=== PATIENT | female | born 1960 | race Caucasian/White ===

== ENCOUNTER 2020-11-18 21:26 | Inpatient (IN) | payer MEDICAID ==
[~2020-11-18] VITALS: Ht 149.9 cm; Wt 109.1 kg
[~2020-11-18 21:26] MED LIST: CLIN-97 PO
--- NOTE | 2020-11-19 00:18 | NUR ---
pt to room, assumed care. ERP at bedside
--- NOTE | 2020-11-19 00:19 | NUR ---
pt tremulous in bed, denies pain.
[2020-11-19 01:20] LABS: BASOPHILS % (AUTO) 0.4 % (0-1); EOSINOPHILS # (AUTO) 0.3 X10'3 (0-0.9); EOSINOPHILS % (AUTO) 2.7 % (0-6); HEMATOCRIT 37.9 % (35.0-45.0); HEMOGLOBIN 12.3 g/dl (12.0-16.0); LYMPHOCYTES # (AUTO) 3.9 X10'3 (1.1-4.8); MEAN CORPUSCULAR HEMOGLOBIN 26.7 PG (27.0-31.0); MEAN CORPUSCULAR HGB CONC 32.5 g/dL (33.0-36.5); MEAN CORPUSCULAR VOLUME 82.2 FL (78-98); MEAN PLATELET VOLUME 8.4 FL (7.4-10.4); MONOCYTES # (AUTO) 0.8 X10'3 (0-0.9); MONOCYTES % (AUTO) 6.6 % (2-12); NEUTROPHILS # (AUTO) 6.5 X10'3 (1.8-7.7); NEUTROPHILS % (AUTO) 56.3 % (42-75); PLATELET COUNT 341 X10'3 (140-440); RED BLOOD COUNT 4.61 X10'6 (4.20-5.60); RED CELL DISTRIBUTION WIDTH 15.2 % (11.5-14.5); WHITE BLOOD COUNT 11.5 X10'3 (4.5-11.0)
[2020-11-19 01:32] LABS: ALANINE AMINOTRANSFERASE 29 U/L (12-78); ALBUMIN 3.4 G/DL (3.4-5.0); ALBUMIN/GLOBULIN RATIO 0.8 (1.1-1.5); ALKALINE PHOSPHATASE 87 IU/L (46-116); ANION GAP 11 (8-16); ASPARTATE AMINO TRANSFERASE 28 U/L (10-37); BILIRUBIN,TOTAL 0.5 MG/DL (0.1-1.0); BLOOD UREA NITROGEN 10 MG/DL (7-18); BUN/CREATININE RATIO 9.3 (6.6-38.0); CALCIUM 9.9 MG/DL (8.5-10.1); CHLORIDE 102 MMOL/L (99-107); CREATININE 1.08 MG/DL (0.40-0.90); ETHANOL < 0.010 GM/DL (0.0-0.010); GLUCOSE 115 MG/DL (70-104); MAGNESIUM 1.7 MG/DL (1.5-2.4); SODIUM 142 MMOL/L (135-145); TOTAL CARBON DIOXIDE 28.8 MMOL/L (24-32); TOTAL PROTEIN 7.5 G/DL (6.4-8.2); eGFR 51 ML/MIN
[2020-11-19] MEDS ORDERED: magnesium oxide 400mg tablet PO ONE (02:00)
[2020-11-19] MEDS ORDERED: potassium Cl 20 mEq SR tablet PO ONE (02:00)
[2020-11-19] MEDS ORDERED: LORazepam 1 MG tablet PO ONE (02:00)
[2020-11-19] MEDS ORDERED: primidone 250mg tablet PO ONE (02:05)
[2020-11-19] MEDS ORDERED: BUPR-344 PO (02:15)
[2020-11-19] MEDS ORDERED: FURO-150 PO (02:15)
[2020-11-19] MEDS ORDERED: OXYB5POW (02:15)
[2020-11-19] MEDS ORDERED: LISI20TA28 PO (02:15)
[2020-11-19] MEDS ORDERED: PROP20TA6 PO (02:17)
[2020-11-19] MEDS ORDERED: CHLO25TA10 PO (02:17)
--- NOTE | 2020-11-19 02:28 | NUR ---
pt refused IV.
[2020-11-19] MEDS ORDERED: acetaminophen 325mg tablet PO PRN ×2 (03:00)
[2020-11-19] MEDS ORDERED: magnesium 4gm in 100ml NS 100 ML IV PRN (03:00)
[2020-11-19] MEDS ORDERED: potassium Cl 20 mEq SR tablet PO PRN ×2 (03:00)
[2020-11-19] MEDS ORDERED: magnesium Cl slow-release 64mg tablet PO PRN (03:00)
[2020-11-19] MEDS ORDERED: magnesium 2GM in 50ml NS 50 ML IV PRN (03:00)
[2020-11-19] MEDS ORDERED: ondansetron/PF 4mg/2ml inj IV PRN (03:00)
[2020-11-19] MEDS ORDERED: potassium Cl 40MEQ/1/2NS 520ml 520 ML IV PRN ×2 (03:00)
--- NOTE | 2020-11-19 03:23 | NUR ---
[facility] RO[facility] ([facility])- [phone] or [phone]
[2020-11-19] MEDS ORDERED: LORazepam 1 MG tablet PO PRN (03:25)
[2020-11-19] MEDS ORDERED: LORazepam 2 mg/ml vial IV PRN (03:25)
[2020-11-19 04:53] LABS: CLARITY,URINE CLOUDY (Clear); COLOR,URINE YELLOW (Yellow); GLUCOSE, URINE NEGATIVE (Neg); KETONES,URINE NEGATIVE (Neg); LEUKOCYTE ESTERASE ,URINE LARGE (Neg); NITRITES, URINE NEGATIVE (Neg); OCCULT BLOOD,URINE SMALL (Neg); PH,URINE 8.5 (4.8-8.0); PROTEIN,URINE TRACE mg/dl (Neg); UROBILINOGEN,URINE 0.2 E.U/dL (0.2-1.0)
[2020-11-19 05:06] LABS: URINE AMPHETAMINE SCREEN NEGATIVE (Neg); URINE BARBITUATE SCREEN NEGATIVE (Neg); URINE BENZODIAZEPINES SCREEN NEGATIVE (Neg); URINE CANNABINOID SCREEN NEGATIVE (Neg); URINE COCAINE SCREEN NEGATIVE (Neg); URINE METHADONE SCREEN NEGATIVE (Neg); URINE OPIATE SCREEN NEGATIVE (Neg); URINE PHENCYCLIDINE SCREEN NEGATIVE (Neg)
[2020-11-19 05:08] LABS: UA COLLECTION TYPE NON-SPECIFIED
[2020-11-19 05:10] LABS: BACTERIA,URINE FEW /HPF (Neg); RBC,URINE 0-2 /HPF (0-2); SQUAMOUS EPITHELIAL CELL,UR FEW /LPF (FEW); TRIPLE PHOSPHATE CRYST 3+ /HPF (NEGATIVE); WBC,URINE 0-4 /HPF (0-4)
[2020-11-19 05:12] LABS: AMORPHOUS PHOSPHATES 2+
--- NOTE | 2020-11-19 06:23 | NUR ---
PT SLEEPING ON LEFT SIDE NO DISTRESS NOTED. RESPIRATIONS EQUAL. WAS TOLD PT REFUSED TO HAVE IV PLACED.
[2020-11-19] MEDS ORDERED: primidone 250mg tablet PO SCH (08:00)
[2020-11-19] MEDS: K and/or MAG REPLACEMENT MC SCH ×2 (08:00→20:00)
[2020-11-19] MEDS: heparin, porcine 5000 units/ml vial SQ SCH ×2 (09:19→20:03)
[2020-11-19] MEDS: normal saline 1000ml 1,000 ML IV SCH ×3 (09:19→21:02)
[2020-11-19 10:00] VITALS: BP 142/77
[2020-11-19] MEDS ORDERED: OXYB5TAB16 PO (11:57)
[2020-11-19] MEDS ORDERED: LISI10TA27 PO (11:57)
[2020-11-19] MEDS: LORazepam 1 MG tablet PO SCH (13:14)
[2020-11-19] MEDS: primidone 50mg tablet PO SCH ×2 (13:14→20:03)
--- NOTE | 2020-11-19 17:50 | NUR ---
Completed MRI screening form and faxed down to MRI. 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 Pt off floor for MRI.
[2020-11-19 18:00] VITALS: BP 126/67
--- NOTE | 2020-11-19 18:00 | NUR ---
Problems reprioritized. Patient report given, questions answered & plan of care reviewed with Vicky MANNING.
--- NOTE | 2020-11-19 18:19 | NUR ---
Pt returned to floor from MRI.
[2020-11-19] MEDS: oxybutynin 5mg tablet PO SCH (20:03)
[2020-11-19] MEDS: propranolol 10mg tablet PO SCH (20:03)
[2020-11-19 22:00] VITALS: BP 126/57
--- NOTE | 2020-11-20 06:00 | NUR ---
Patient in room ORTHO 4010. I have received report from DAPHNEY MANNING and had the opportunity to ask questions and assume patient care.
--- NOTE | 2020-11-20 06:16 | NUR ---
Problems reprioritized. Patient report given, questions answered & plan of care reviewed with Garima MANNING. Addendum: 11/20/20 at 0617 by Vicky Faust RN Amended: Links added.
[2020-11-20 07:38] LABS: BASOPHILS % (AUTO) 0.3 % (0-1); EOSINOPHILS # (AUTO) 0.6 X10'3 (0-0.9); EOSINOPHILS % (AUTO) 8.6 % (0-6); HEMATOCRIT 35.3 % (35.0-45.0); HEMOGLOBIN 11.5 g/dl (12.0-16.0); LYMPHOCYTES # (AUTO) 2.7 X10'3 (1.1-4.8); LYMPHOCYTES % (AUTO) 37.8 % (21-51); MEAN CORPUSCULAR HEMOGLOBIN 26.9 PG (27.0-31.0); MEAN CORPUSCULAR HGB CONC 32.5 g/dL (33.0-36.5); MEAN CORPUSCULAR VOLUME 82.8 FL (78-98); MEAN PLATELET VOLUME 8.6 FL (7.4-10.4); MONOCYTES # (AUTO) 0.5 X10'3 (0-0.9); MONOCYTES % (AUTO) 7.4 % (2-12); NEUTROPHILS # (AUTO) 3.3 X10'3 (1.8-7.7); NEUTROPHILS % (AUTO) 45.9 % (42-75); PLATELET COUNT 282 X10'3 (140-440); RED BLOOD COUNT 4.26 X10'6 (4.20-5.60); RED CELL DISTRIBUTION WIDTH 15.5 % (11.5-14.5); WHITE BLOOD COUNT 7.3 X10'3 (4.5-11.0)
[2020-11-20 07:49] LABS: ALANINE AMINOTRANSFERASE 28 U/L (12-78); ALBUMIN 2.7 G/DL (3.4-5.0); ALBUMIN/GLOBULIN RATIO 0.8 (1.1-1.5); ALKALINE PHOSPHATASE 67 IU/L (46-116); ANION GAP 6 (8-16); ASPARTATE AMINO TRANSFERASE 21 U/L (10-37); BILIRUBIN,TOTAL 0.3 MG/DL (0.1-1.0); BLOOD UREA NITROGEN 12 MG/DL (7-18); CALCIUM 8.1 MG/DL (8.5-10.1); CHLORIDE 105 MMOL/L (99-107); CREATININE 0.75 MG/DL (0.40-0.90); GLUCOSE 89 MG/DL (70-104); MAGNESIUM 1.8 MG/DL (1.5-2.4); POTASSIUM 3.5 MMOL/L (3.5-5.1); SODIUM 140 MMOL/L (135-145); TOTAL CARBON DIOXIDE 29.5 MMOL/L (24-32); TOTAL PROTEIN 6.2 G/DL (6.4-8.2); eGFR 78 ML/MIN
[2020-11-20 08:00] VITALS: BP 121/65
[2020-11-20] MEDS: K and/or MAG REPLACEMENT MC SCH (08:00)
[2020-11-20] MEDS ORDERED: furosemide 20MG tablet PO SCH (08:00)
[2020-11-20] MEDS ORDERED: chlorthalidone 25mg tablet PO SCH (08:00)
[2020-11-20] MEDS ORDERED: buPROPion SR 150mg tablet PO SCH (08:00)
[2020-11-20] MEDS ORDERED: lisinopril 10 MG tablet PO SCH (08:00)
[2020-11-20] MEDS: heparin, porcine 5000 units/ml vial SQ SCH (08:39)
[2020-11-20] MEDS: propranolol 10mg tablet PO SCH (08:39)
[2020-11-20] MEDS: LORazepam 1 MG tablet PO SCH (08:39)
[2020-11-20] MEDS: oxybutynin 5mg tablet PO SCH (08:40)
[2020-11-20] MEDS: primidone 50mg tablet PO SCH (08:40)
[2020-11-20] MEDS: normal saline 1000ml 1,000 ML IV SCH (08:41)
[2020-11-20 10:07] VITALS: BP 107/51
[2020-11-20] MEDS ORDERED: LORA-269 PO (11:12)
--- NOTE | 2020-11-20 11:43 | NUR ---
pt received discharge instruction and verbalized understanding of dc instructions. iv was dc intact, monitor was also removed. pt was wheeled to private vehicle in zero distress.
== END 2020-11-20 11:40 | disposition home health service (06) | DRG 469 ==
LOC: ER 21:27 → ED HOLD 11-19 02:58 → OBSVTOIN 11-19 02:58 → ORTHO 4S 11-19 06:55
PROVIDERS: ADMIT Internal Medicine; ATTEND Internal Medicine
PROC: 4A00X4Z Measurement of Central Nervous Electrical Activity, External Approach (ICD-10-PCS; principal; 2020-11-19)
DX: N17.9 Acute kidney failure, unspecified (principal); E66.01 Morbid (severe) obesity due to excess calories; G25.0 Essential tremor; N18.30 Chronic kidney disease, stage 3 unspecified; E86.0 Dehydration; E87.6 Hypokalemia; I12.9 Hypertensive chronic kidney disease with stage 1 through stage 4 chronic kidney disease, or unspecified chronic kidney disease; J45.909 Unspecified asthma, uncomplicated; R63.3 Feeding difficulties; Z79.899 Other long term (current) drug therapy; Z82.0 Family history of epilepsy and other diseases of the nervous system; Z90.710 Acquired absence of both cervix and uterus; Z68.42 Body mass index [BMI] 45.0-49.9, adult; Z88.1 Allergy status to other antibiotic agents; Z88.5 Allergy status to narcotic agent
CPT/HCPCS: 36415; 70450; 70551; 80053; 80305; 80320; 81001; 82140; 83735; 85025; 87081; 87088; 95816; 97116; 97162; 97530; 99285; G0378; J1644; J7030

== ENCOUNTER 2021-03-24 09:40 | Emergency (ER) | payer MEDICAID ==
[~2021-03-24] VITALS: Ht 149.9 cm; Wt 99.0 kg
[~2021-03-24 09:40] MED LIST changes: +BUPR-344 PO; +CHLO25TA10 PO; -CLIN-97 PO; +FURO-150 PO; +LISI10TA27 PO; +LORA-269 PO; +OXYB5TAB16 PO; +PROP20TA6 PO
[2021-03-24 09:47] VITALS: BP 201/108
[2021-03-24 12:56] LABS: BASOPHILS # (AUTO) 0.1 X10'3 (0-0.2); BASOPHILS % (AUTO) 1.2 % (0-1); EOSINOPHILS # (AUTO) 0.7 X10'3 (0-0.9); EOSINOPHILS % (AUTO) 7.5 % (0-6); HEMATOCRIT 35.7 % (35.0-45.0); HEMOGLOBIN 11.5 g/dl (12.0-16.0); LYMPHOCYTES # (AUTO) 3.2 X10'3 (1.1-4.8); LYMPHOCYTES % (AUTO) 33.5 % (21-51); MEAN CORPUSCULAR HEMOGLOBIN 26.9 PG (27.0-31.0); MEAN CORPUSCULAR HGB CONC 32.1 g/dL (33.0-36.5); MEAN CORPUSCULAR VOLUME 83.6 FL (78-98); MEAN PLATELET VOLUME 8.3 FL (7.4-10.4); MONOCYTES # (AUTO) 0.6 X10'3 (0-0.9); MONOCYTES % (AUTO) 6.5 % (2-12); NEUTROPHILS # (AUTO) 4.8 X10'3 (1.8-7.7); NEUTROPHILS % (AUTO) 51.3 % (42-75); PLATELET COUNT 356 X10'3 (140-440); RED BLOOD COUNT 4.27 X10'6 (4.20-5.60); WHITE BLOOD COUNT 9.4 X10'3 (4.5-11.0)
[2021-03-24 13:09] LABS: ALANINE AMINOTRANSFERASE 26 U/L (12-78); ALBUMIN 3.1 G/DL (3.4-5.0); ALBUMIN/GLOBULIN RATIO 0.7 (1.1-1.5); ALKALINE PHOSPHATASE 82 IU/L (46-116); ANION GAP 7 (8-16); ASPARTATE AMINO TRANSFERASE 18 U/L (10-37); BILIRUBIN,TOTAL 0.2 MG/DL (0.1-1.0); BLOOD UREA NITROGEN 11 MG/DL (7-18); BUN/CREATININE RATIO 12.4 (6.6-38.0); CALCIUM 8.8 MG/DL (8.5-10.1); CHLORIDE 107 MMOL/L (99-107); CREATININE 0.89 MG/DL (0.40-0.90); GLUCOSE 86 MG/DL (70-104); POTASSIUM 3.8 MMOL/L (3.5-5.1); SODIUM 144 MMOL/L (135-145); TOTAL CARBON DIOXIDE 30.5 MMOL/L (24-32); TOTAL PROTEIN 7.3 G/DL (6.4-8.2); eGFR 64 ML/MIN
[2021-03-24 13:11] LABS: CREATINE KINASE 91 U/L (26-192)
== END 2021-03-24 13:55 | disposition home or self-care (01) ==
LOC: ER 09:40
DX: M79.18 Myalgia, other site (principal); I10 Essential (primary) hypertension; M79.602 Pain in left arm; M25.561 Pain in right knee; J45.909 Unspecified asthma, uncomplicated; K21.9 Gastro-esophageal reflux disease without esophagitis; Z86.69 Personal history of other diseases of the nervous system and sense organs; Z90.710 Acquired absence of both cervix and uterus; Z79.2 Long term (current) use of antibiotics; Z88.8 Allergy status to other drugs, medicaments and biological substances; Z79.899 Other long term (current) drug therapy
CPT/HCPCS: 36415; 80053; 82550; 85025; 99283

== ENCOUNTER 2021-10-31 22:31 | Inpatient (IN) | payer MEDICAID ==
[~2021-10-31] VITALS: Ht 149.9 cm; Wt 100.0 kg
--- NOTE | 2021-10-31 23:24 | NUR ---
DR DELGADO GAVE VO FOR 0.5 MG OF DILAUDID IV ONCE GIVEN SLOWLY. DR DELGADO VERY AWARE OF PT'S ALLERGY TO CODEINE. PT RECEIVED FENTANYL EN ROUTE TO DEPARTMENT AND DID NOT DEVELOP ANY REACTION. DR DELGADO GAVE ORDER TO CAREFULLY MONITOR PT. VERBAL ORDER REPEATED BACK FOR ACCURACY.
[2021-10-31] MEDS ORDERED: HYDROmorphone inj. 0.5 MG/0.5 ML DISP.SYRIN IV ONE ×2 (23:25)
[2021-10-31] MEDS ORDERED: normal saline 1000ml 1,000 ML IV ONE (23:30)
[2021-10-31 23:48] LABS: BASOPHILS % (AUTO) 0.3 % (0-1); EOSINOPHILS # (AUTO) 0.8 X10'3 (0-0.9); EOSINOPHILS % (AUTO) 5.5 % (0-6); HEMATOCRIT 35.3 % (35.0-45.0); HEMOGLOBIN 11.6 g/dl (12.0-16.0); LYMPHOCYTES # (AUTO) 2.7 X10'3 (1.1-4.8); LYMPHOCYTES % (AUTO) 18.2 % (21-51); MEAN CORPUSCULAR HEMOGLOBIN 27.3 PG (27.0-31.0); MEAN CORPUSCULAR HGB CONC 32.9 g/dL (33.0-36.5); MEAN CORPUSCULAR VOLUME 82.9 FL (78-98); MEAN PLATELET VOLUME 8.5 FL (7.4-10.4); MONOCYTES # (AUTO) 0.6 X10'3 (0-0.9); MONOCYTES % (AUTO) 4.4 % (2-12); NEUTROPHILS # (AUTO) 10.4 X10'3 (1.8-7.7); NEUTROPHILS % (AUTO) 71.6 % (42-75); PLATELET COUNT 288 X10'3 (140-440); RED BLOOD COUNT 4.25 X10'6 (4.20-5.60); RED CELL DISTRIBUTION WIDTH 14.5 % (11.5-14.5); WHITE BLOOD COUNT 14.5 X10'3 (4.5-11.0)
[2021-10-31] MEDS ORDERED: mag hydrox/Alum hydrox/simeth 30ml oral suspension PO PRN (23:50)
[2021-10-31] MEDS ORDERED: HYDROcodone/acetaminophen 5mg/325mg tablet PO PRN (23:50)
[2021-10-31] MEDS ORDERED: ipratropium/albuterol 3ml nebule NEB PRN (23:50)
[2021-10-31] MEDS ORDERED: magnesium hydroxide 30ml (MOM) UD suspension PO PRN (23:50)
[2021-10-31] MEDS ORDERED: morphine 2 MG/ML inj. syringe IV PRN ×2 (23:50)
[2021-10-31] MEDS ORDERED: acetaminophen 325mg tablet PO PRN ×2 (23:50)
[2021-10-31] MEDS: dextrose 5%-1/2 normal saline 1,000 ML IV SCH (23:50)
[2021-10-31] MEDS ORDERED: ondansetron/PF 4mg/2ml inj IV PRN (23:50)
[2021-10-31 23:58] LABS: APTT 27 SECONDS (22-32)
[2021-11-01 00:04] LABS: ALANINE AMINOTRANSFERASE 17 U/L (12-78); ALBUMIN 3.3 G/DL (3.4-5.0); ALBUMIN/GLOBULIN RATIO 0.8 (1.1-1.5); ALKALINE PHOSPHATASE 75 IU/L (46-116); ANION GAP 8 (8-16); ASPARTATE AMINO TRANSFERASE 11 U/L (10-37); BILIRUBIN,TOTAL 0.2 MG/DL (0.1-1.0); BLOOD UREA NITROGEN 17 MG/DL (7-18); BUN/CREATININE RATIO 15.2 (6.6-38.0); CALCIUM 8.2 MG/DL (8.5-10.1); CHLORIDE 105 MMOL/L (99-107); CREATININE 1.12 MG/DL (0.40-0.90); GLUCOSE 159 MG/DL (70-104); POTASSIUM 3.1 MMOL/L (3.5-5.1); SODIUM 141 MMOL/L (135-145); TOTAL CARBON DIOXIDE 27.6 MMOL/L (24-32); TOTAL PROTEIN 7.3 G/DL (6.4-8.2); eGFR 49 ML/MIN
[2021-11-01 00:06] LABS: MAGNESIUM 1.7 MG/DL (1.5-2.4)
--- NOTE | 2021-11-01 01:00 | NUR ---
PT IS UNABLE TO CARE FOR HERSELF D/T HER FRACTURE ON HER OWN DURING THE NIGHT. HER SON WORKS NIGHTSHIFT AND IS UNABLE TO HELP HER SETTLE BACK HOME.
[2021-11-01] MEDS ORDERED: CHOL500050 PO (01:17)
[2021-11-01] MEDS ORDERED: PRIM50TA27 PO ×2 (01:17→01:23)
[2021-11-01] MEDS ORDERED: PANT-47 PO (01:17)
--- NOTE | 2021-11-01 01:44 | NUR ---
PT'S SON, JUAN FRANCISCO, PHONE NUMBER IS [phone]
[2021-11-01 02:20] VITALS: BP 146/52
[2021-11-01] MEDS: dextrose 5%-1/2 normal saline 1,000 ML IV SCH (02:32)
--- NOTE | 2021-11-01 02:48 | NUR ---
MESSAGE: 4010a Poo;, [place] 61 humurus fx. her potassium is low 3.1. can she be on replacement protocol? thank you. #[id number] Birgit
[2021-11-01 06:00] VITALS: BP 119/47
[2021-11-01 06:33] LABS: BASOPHILS % (AUTO) 0.2 % (0-1); EOSINOPHILS % (AUTO) 0.2 % (0-6); HEMATOCRIT 36.2 % (35.0-45.0); HEMOGLOBIN 11.2 g/dl (12.0-16.0); LYMPHOCYTES # (AUTO) 1.1 X10'3 (1.1-4.8); LYMPHOCYTES % (AUTO) 8.5 % (21-51); MEAN CORPUSCULAR HEMOGLOBIN 26.7 PG (27.0-31.0); MEAN PLATELET VOLUME 8.8 FL (7.4-10.4); MONOCYTES # (AUTO) 0.6 X10'3 (0-0.9); MONOCYTES % (AUTO) 4.4 % (2-12); NEUTROPHILS # (AUTO) 11.2 X10'3 (1.8-7.7); NEUTROPHILS % (AUTO) 86.7 % (42-75); PLATELET COUNT 240 X10'3 (140-440); RED BLOOD COUNT 4.21 X10'6 (4.20-5.60); RED CELL DISTRIBUTION WIDTH 14.9 % (11.5-14.5)
--- NOTE | 2021-11-01 06:35 | NUR ---
Problems reprioritized. Patient report given, questions answered & plan of care reviewed with nader Shi.
[2021-11-01 06:49] LABS: ALBUMIN 3.1 G/DL (3.4-5.0); ANION GAP 14 (8-16); BLOOD UREA NITROGEN 15 MG/DL (7-18); BUN/CREATININE RATIO 17.6 (6.6-38.0); CHLORIDE 105 MMOL/L (99-107); CREATININE 0.85 MG/DL (0.40-0.90); GLUCOSE 160 MG/DL (70-104); POTASSIUM 3.5 MMOL/L (3.5-5.1); SODIUM 143 MMOL/L (135-145); TOTAL CARBON DIOXIDE 24.3 MMOL/L (24-32); eGFR 68 ML/MIN
--- NOTE | 2021-11-01 06:50 | NUR ---
Patient in room ORTHO 4010A. I have received report from KERRI DOTSON and had the opportunity to ask questions and assume patient care.
[2021-11-01] MEDS ORDERED: docusate sod 100mg capsule PO SCH (08:00)
[2021-11-01 10:00] VITALS: BP 133/46
[2021-11-01] MEDS ORDERED: HYDR-3964 PO ×2 (12:00)
[2021-11-01] MEDS ORDERED: TRAM50TA2 PO (12:51)
[2021-11-01] MEDS ORDERED: ONDA8TAB13 PO (12:51)
--- NOTE | 2021-11-01 16:15 | NUR ---
PATIENT STABLE AND APPROPRIATE FOR DISCHARGE, IV REMOVED, EDUCATION GIVEN, NEW MEDS E-SCRIPTED TO PREFERRED PHARMACY, ALL BELONGINGS SENT WITH PATIENT, PATIENT TAKEN TO LOBBY BY WHEELCHAIR TO AN AWAITING CAR WHERE WILL TAKE PATIENT HOME
--- NOTE | 2021-11-01 17:15 | NUR ---
CALLED TO HAVE ME CANCEL NORCO THAT WAS E-SCRIPTED TO PATIENT'S PREFERRED PHARMACY EARLIER IN DAY. CALLED PHARMACY TO CANCEL AND PHARMACY STAFF STATED PATIENT HAD ALREADY PICKED UP MED. WHEN EDUCATING THE PATIENT ON NEW MEDS I INSTRUCTED THE PATIENT NOT TO UNIX MANAGER NORCO AND TO DECLINE THE MEDS, STATED UNDERSTANDING OF MY INSTRUCTIONS. PHARMACY STAFF STATED THEY WOULD PLACE A NOTE IN PATIENT CHART ABOUT THE SITUATION
== END 2021-11-01 16:00 | disposition home or self-care (01) | DRG 342 ==
LOC: ER 22:32 → UNDOADMIN 23:48 → ED HOLD 23:48 → ORTHO 4S 11-01 02:05
PROVIDERS: ADMIT Internal Medicine; ATTEND Internal Medicine
DX: S42.331A Displaced oblique fracture of shaft of humerus, right arm, initial encounter for closed fracture (principal); E66.01 Morbid (severe) obesity due to excess calories; I10 Essential (primary) hypertension; J45.909 Unspecified asthma, uncomplicated; J98.11 Atelectasis; M19.90 Unspecified osteoarthritis, unspecified site; W18.39XA Other fall on same level, initial encounter; Z20.822 Contact with and (suspected) exposure to COVID-19; F41.9 Anxiety disorder, unspecified; Z68.41 Body mass index [BMI] 40.0-44.9, adult; Z82.49 Family history of ischemic heart disease and other diseases of the circulatory system; Z90.710 Acquired absence of both cervix and uterus; Y93.89 Activity, other specified; Y92.89 Other specified places as the place of occurrence of the external cause; Y99.8 Other external cause status; Z79.899 Other long term (current) drug therapy; Z90.49 Acquired absence of other specified parts of digestive tract; Z88.5 Allergy status to narcotic agent; Z88.8 Allergy status to other drugs, medicaments and biological substances
CPT/HCPCS: 36415; 71045; 73060; 80048; 80053; 83735; 83880; 84484; 85025; 85610; 85730; 87081; 87635; 93005; 94760; 96361; 97116; 97161; 97530; 99285; G0378; J1170; J2405; J7030; J7042

== ENCOUNTER 2021-11-11 13:11 | Day surgery (SDC) | payer MEDICAID ==
[2021-11-11] VITALS (10 sets, daily range): BP systolic 134–156; BP diastolic 69–81
[~2021-11-11] VITALS: Ht 149.9 cm; Wt 99.5 kg
[~2021-11-11 13:11] MED LIST changes: +CHOL500050 PO; -LORA-269 PO; +ONDA8TAB13 PO; -OXYB5TAB16 PO; +PANT-47 PO; +PRIM50TA27 PO; +TRAM50TA2 PO; +famotidine 20mg tablet PO ONE
[2021-11-11 14:27] LABS: BASOPHILS # (AUTO) 0.1 X10'3 (0-0.2); BASOPHILS % (AUTO) 0.8 % (0-1); EOSINOPHILS # (AUTO) 0.3 X10'3 (0-0.9); EOSINOPHILS % (AUTO) 3.6 % (0-6); LYMPHOCYTES # (AUTO) 2.3 X10'3 (1.1-4.8); LYMPHOCYTES % (AUTO) 24.4 % (21-51); MEAN CORPUSCULAR HEMOGLOBIN 26.9 PG (27.0-31.0); MEAN CORPUSCULAR HGB CONC 32.2 g/dL (33.0-36.5); MEAN CORPUSCULAR VOLUME 83.6 FL (78-98); MEAN PLATELET VOLUME 8.1 FL (7.4-10.4); MONOCYTES # (AUTO) 0.6 X10'3 (0-0.9); MONOCYTES % (AUTO) 5.9 % (2-12); NEUTROPHILS # (AUTO) 6.3 X10'3 (1.8-7.7); NEUTROPHILS % (AUTO) 65.3 % (42-75); PRE OP HEMATOCRIT 34.5 % (35.0-45.0); PRE OP HEMOGLOBIN 11.1 g/dL (12.0-16.0); PRE OP PLATELET COUNT 363 X10'3 (140-440); RED BLOOD COUNT 4.13 X10'6 (4.20-5.60); RED CELL DISTRIBUTION WIDTH 14.4 % (11.5-14.5)
[2021-11-11 14:34] LABS: ALBUMIN 3.2 G/DL (3.4-5.0); ALBUMIN/GLOBULIN RATIO 0.7 (1.1-1.5); ALKALINE PHOSPHATASE 97 IU/L (46-116); BLOOD UREA NITROGEN 13 MG/DL (7-18); BUN/CREATININE RATIO 16.7 (6.6-38.0); CALCIUM 9.3 MG/DL (8.5-10.1); CHLORIDE 104 MMOL/L (99-107); CREATININE 0.78 MG/DL (0.40-0.90); PRE OP ALT 14 U/L (30-65); PRE OP ANION GAP 7 (8-16); PRE OP AST 14 U/L (10-37); PRE OP BILIRUB, TOTAL 0.4 MG/DL (0.0-1.0); PRE OP GLUCOSE 94 MG/DL (70-104); PRE OP POTASSIUM 4.2 MMOL/L (3.4-5.1); PRE OP SODIUM 140 MMOL/L (135-145); TOTAL CARBON DIOXIDE 29.1 MMOL/L (24-32); TOTAL PROTEIN 7.6 G/DL (6.4-8.2); eGFR 75 ML/MIN
--- NOTE | 2021-11-11 15:00 | NUR ---
PATIENT PRESENTED WITH HIGH ANXIETY AND FEAR OF THE PROCESS OF HAVING SURGERY. AFTER THE PATIENT WAS PUT IN A GOWN AND VITALS TAKEN SHE WAS PRESENTING WITH EXCESSIVE FEAR OVER HAVING AN IV PUT IN. THE NURSE USED LIDACAINE AND NUMBED THE AREA INITIATED THE IV AND WAS ABLE TP PLACE A 20 G IN THE LEFT HAND. THE NURSE ASKED THE ANESTHESIOLOGIST FOR SOMETHING FOR HER ANXIETY. THE DOCTOR ORDERED: VERSED 3MG Q5 UP TO 12 MG MAX DOSE. ORDERED THE MEDICATION AND PUT THE PATIENT IN ANOTHER ROOM CLOSE TO THE NURSES STATION. PLACED PATIENT ON SR. MEDIA MANAGER, ADMINISTERED 2 LITERS O2 PER NC, AND ADMINISTERED 3MG VERSED AFTER TAKING INITIAL V/S. INITIAL V/S 1600: 134/69 92 99% 1603: 153/78 90 99%. SHE WENT TO THE OR AT 1603
[2021-11-11] MEDS ORDERED: propofol inj 20 ML IV ONE (15:12)
[2021-11-11] MEDS ORDERED: succinylcholine 20mg/ml inj IV ONE (15:13)
[2021-11-11] MEDS ORDERED: LIDOcaine 2% (20mg/ml) 5ml vial ONE (15:13)
[2021-11-11] MEDS ORDERED: midazolam 1 mg/ML 2ml injection IV PRN (15:15)
[2021-11-11] MEDS ORDERED: dexamethasone sod phosphate 4mg/ml inj. ONE (15:16)
[2021-11-11] MEDS ORDERED: ondansetron/PF 4mg/2ml inj ONE (15:16)
[2021-11-11] MEDS ORDERED: ROPIVAcaine 0.5% (5mg/ml) 30ml vial ONE (15:17)
[2021-11-11] MEDS ORDERED: hydrALAZINE 20mg/ml inj. IV PRN ×2 (15:20→16:40)
[2021-11-11] MEDS ORDERED: fentaNYL/PF 50MCG/1 ML 2ML syringe IV PRN ×4 (15:20→16:40)
[2021-11-11] MEDS ORDERED: ondansetron/PF 4mg/2ml inj IV PRN ×2 (15:20→16:40)
[2021-11-11] MEDS ORDERED: ringers solution, lacted 1,000 ML IV SCH ×2 (15:20→16:40)
[2021-11-11] MEDS ORDERED: morphine 2 MG/ML inj. syringe IV PRN ×2 (15:20→16:40)
[2021-11-11] MEDS ORDERED: labetalol 20mg/4ml (5mg/ml) syringe IV PRN ×2 (15:20→16:40)
[2021-11-11] MEDS ORDERED: morphine 4 MG/ML inj SYRINge IV PRN ×2 (15:20→16:40)
[2021-11-11] MEDS ORDERED: sevoflurane 250ml liquid IH ONE (15:42)
[2021-11-11] MEDS ORDERED: ceFAZolin 1000mg inj ONE ×2 (16:04)
[2021-11-11] MEDS ORDERED: fentaNYL/PF 50MCG/1 ML 2ML syringe ONE (16:07)
--- NOTE | 2021-11-11 17:50 | NUR ---
Received from OR via [facility], accompanied by Anesthesiologist DR. BAIRES and report given by Anesthesiolgist. LEFT HAND 20G LR RUNNING AT 100ML/HR. VSS. STATES PAIN UPON FURTHER REVIEW SHE STATES, "IT JUST FEELS NUMB, I CAN'T MOVE IT". MOVES ALL OTHER EXTREMITIES. RIGHT ARM WITH BLOCK PER DR. BAIRES. DRESSING TO RIGHT ARM CDI, WITH SLING IN PLACE. PATIENT WHINING SHE WANTS HER SON, JUAN FRANCISCO. JUAN FRANCISCO HAS CONTACTED ALREADY AND STATED HE IS HER PICKUP PERSON. PATIENT TOLERATING ICE TO HELP WITH SORE THROAT FROM AIRWAY INTRAOP.
--- NOTE | 2021-11-11 18:50 | NUR ---
PATIENT CONTINUES TO DESAT ON ROOM AIR, COUGHING AND DEEP BREATHING BRING HER BACK TO 93%, HOWEVER SHE WAXES AND WANES BETWEEN 87%-93%. PATIENT STATES SHE HAS A COUGH AT BASELINE THE LAST COUPLE WEEKS AT HOME, BUT OTHER THAN ASTHMA NO HISTORY OF RESPIRATORY COMPROMISE NOR SMOKING HISTORY.
--- NOTE | 2021-11-11 19:00 | NUR ---
CONTACTED DR. BAIRES REGARDING PATIENT SATURATIONS 87%-93% ON ROOM AIR. DR. BAIRES STATES DUE TO PATIENT ANXIETY AT BASELINE, MORBID OBESITY, AND BLOCK LOCATION SHE WILL HAVE SHALLOW BREATHING. PATIENT DENIES SHORTNESS OF BREATH AND WISHES TO GO HOME. DR. BAIRES STATES HE IS NOT CONCERNED WITH SATURATIONS LONG SHE IS NOT HAVING SHORTNESS OF BREATH. PATIENT TO BE SENT HOME. SPOKE WITH SON, JUAN FRANCISCO, AND HE STATES HE WILL BE WITH HER AND I EDUCATED HIM ON THE SITUATION WELL DISCHARGE INSTRUCTIONS. DISCHARGED HOME WITH ALL BELONGINGS AFTER TAKEN TO TOILET TO VOID.
[2021-11-12] MEDS ORDERED: ONDA4TAB12 PO (18:53)
[2021-11-12] MEDS ORDERED: OXYC-150 PO (18:53)
== END 2021-11-11 19:20 | disposition home or self-care (01) ==
LOC: PAS 13:11
PROVIDERS: ATTEND Orthopaedic Surgery
DX: S42.341A Displaced spiral fracture of shaft of humerus, right arm, initial encounter for closed fracture (principal); G89.18 Other acute postprocedural pain; I10 Essential (primary) hypertension; F32.A Depression, unspecified; F41.9 Anxiety disorder, unspecified; G25.0 Essential tremor; E66.01 Morbid (severe) obesity due to excess calories; Z68.41 Body mass index [BMI] 40.0-44.9, adult; Z88.5 Allergy status to narcotic agent; Z88.1 Allergy status to other antibiotic agents; Z88.8 Allergy status to other drugs, medicaments and biological substances; Z90.710 Acquired absence of both cervix and uterus; Z98.890 Other specified postprocedural states; Z90.49 Acquired absence of other specified parts of digestive tract; Z79.899 Other long term (current) drug therapy; Z82.49 Family history of ischemic heart disease and other diseases of the circulatory system; Z82.0 Family history of epilepsy and other diseases of the nervous system; W19.XXXA Unspecified fall, initial encounter; Y93.89 Activity, other specified; Y92.89 Other specified places as the place of occurrence of the external cause; Y99.8 Other external cause status
CPT/HCPCS: 24515; 36415; 64415; 73060; 76000; 76942; 80053; 82948; 85025; C1713; C1773; J0330; J0690; J1100; J2250; J2270; J2405; J2704; J2795; J3010; J3490; J7030; J7120; Z7506; Z7508; Z7512; A4565; A4618; A6449; A7000

== ENCOUNTER 2021-11-12 15:12 | Emergency (ER) | payer MEDICAID ==
[~2021-11-12] VITALS: Ht 149.9 cm; Wt 96.4 kg
[~2021-11-12 15:12] MED LIST changes: -famotidine 20mg tablet PO ONE
--- NOTE | 2021-11-12 17:00 | NUR ---
patient received in room 6.
[2021-11-12] MEDS ORDERED: ondansetron 4mg rapidly disintigrating tab PO ONE (17:10)
[2021-11-12] MEDS ORDERED: morphine 4 MG/ML inj SYRINge IV ONE (17:10)
[2021-11-12 17:30] LABS: BASOPHILS # (AUTO) 0.1 X10'3 (0-0.2); BASOPHILS % (AUTO) 0.6 % (0-1); EOSINOPHILS # (AUTO) 0.1 X10'3 (0-0.9); HEMATOCRIT 32.1 % (35.0-45.0); HEMOGLOBIN 10.6 g/dl (12.0-16.0); MEAN CORPUSCULAR HEMOGLOBIN 27.2 PG (27.0-31.0); MEAN CORPUSCULAR HGB CONC 33.1 g/dL (33.0-36.5); MEAN CORPUSCULAR VOLUME 82.4 FL (78-98); MEAN PLATELET VOLUME 8.1 FL (7.4-10.4); MONOCYTES % (AUTO) 6.7 % (2-12); NEUTROPHILS # (AUTO) 10.8 X10'3 (1.8-7.7); NEUTROPHILS % (AUTO) 71.7 % (42-75); PLATELET COUNT 393 X10'3 (140-440); RED CELL DISTRIBUTION WIDTH 14.3 % (11.5-14.5)
[2021-11-12] MEDS ORDERED: ondansetron/PF 4mg/2ml inj IV STA (17:41)
[2021-11-12 17:45] LABS: ALANINE AMINOTRANSFERASE 65 U/L (12-78); ALBUMIN 3.3 G/DL (3.4-5.0); ALBUMIN/GLOBULIN RATIO 0.8 (1.1-1.5); ALKALINE PHOSPHATASE 118 IU/L (46-116); ANION GAP 8 (8-16); ASPARTATE AMINO TRANSFERASE 44 U/L (10-37); BILIRUBIN,TOTAL 0.5 MG/DL (0.1-1.0); BLOOD UREA NITROGEN 18 MG/DL (7-18); CALCIUM 8.6 MG/DL (8.5-10.1); CHLORIDE 99 MMOL/L (99-107); GLUCOSE 105 MG/DL (70-104); POTASSIUM 3.7 MMOL/L (3.5-5.1); SODIUM 134 MMOL/L (135-145); TOTAL CARBON DIOXIDE 27.3 MMOL/L (24-32); TOTAL PROTEIN 7.5 G/DL (6.4-8.2); eGFR 56 ML/MIN
--- NOTE | 2021-11-12 18:07 | NUR ---
CALLED AND LEFT DR. DELCID VOICEMAIL X2 FOR CONSULT PER FARIDA MACDONALD
[2021-11-12 18:14] VITALS: BP 110/51
--- NOTE | 2021-11-12 18:15 | NUR ---
visitor at bedside.
[2021-11-12] MEDS ORDERED: ONDA4TAB12 PO (18:53)
[2021-11-12] MEDS ORDERED: OXYC-150 PO (18:53)
== END 2021-11-12 19:36 | disposition home or self-care (01) ==
LOC: ER 15:12
DX: L76.82 Other postprocedural complications of skin and subcutaneous tissue (principal); M79.601 Pain in right arm; I10 Essential (primary) hypertension; J45.909 Unspecified asthma, uncomplicated; K21.9 Gastro-esophageal reflux disease without esophagitis; Z86.69 Personal history of other diseases of the nervous system and sense organs; Z90.710 Acquired absence of both cervix and uterus; Z88.5 Allergy status to narcotic agent; Z88.1 Allergy status to other antibiotic agents; Z88.8 Allergy status to other drugs, medicaments and biological substances; Z79.899 Other long term (current) drug therapy
CPT/HCPCS: 36415; 73060; 80053; 83605; 84145; 85025; 87040; 96374; 96375; 99284; J2270; J2405

== ENCOUNTER 2022-06-19 09:06 | Emergency (ER) | payer MEDICAID ==
[~2022-06-19] VITALS: Ht 149.9 cm; Wt 101.0 kg
[~2022-06-19 09:06] MED LIST changes: +ONDA4TAB12 PO; +OXYC-150 PO; -TRAM50TA2 PO
[2022-06-19 09:31] VITALS: BP 192/91
[2022-06-19] MEDS ORDERED: PRED20TA PO (11:53)
[2022-06-19] MEDS ORDERED: GUAI-647 PO (11:53)
[2022-06-19] MEDS ORDERED: AMOX-117 PO (11:53)
[2022-06-19] MEDS ORDERED: ALBU6.7H14 INH (11:53)
== END 2022-06-19 12:20 | disposition home or self-care (01) ==
LOC: ER 09:07
DX: J40 Bronchitis, not specified as acute or chronic (principal); Z20.822 Contact with and (suspected) exposure to COVID-19; K21.9 Gastro-esophageal reflux disease without esophagitis; J45.909 Unspecified asthma, uncomplicated; I10 Essential (primary) hypertension; Z88.1 Allergy status to other antibiotic agents; Z88.5 Allergy status to narcotic agent; Z88.8 Allergy status to other drugs, medicaments and biological substances; Z79.899 Other long term (current) drug therapy; Z79.1 Long term (current) use of non-steroidal anti-inflammatories (NSAID)
CPT/HCPCS: 71045; 87635; 99284; C9803

== ENCOUNTER 2025-01-15 23:15 | Emergency (ER) | payer MEDICAID ==
[~2025-01-15] VITALS: Ht 147.3 cm; Wt 101.5 kg
[~2025-01-15 23:15] MED LIST changes: +ALBU6.7H14 INH; +ONDA-243 PO; +ONDA-245 PO; -ONDA4TAB12 PO; -ONDA8TAB13 PO
[2025-01-15 23:31] VITALS: TEMP 97.7
--- NOTE | 2025-01-16 01:03 | Physician Documentation ---
History of Present Illness ~ Chief Complaint: Headache Stated Complaint: BUMP ON HEAD Time Seen by MD: 01:02 OK to notify your PCP?: Yes Primary Medical Doctor: Elijah Shirley MD Source: patient, RN/MD, RN notes reviewed, old records Mode of Arrival: POV Exam Limitations: no limitations HPI 65 year old female with history of tremors seen in bed 12 presents to the emergency department for complaints of head pain that began yesterday. She states that she was bending over in the shower when she had hit her head. When she woke up today she began to feel nauseated and has been having a headache, Patient denies any blood thinners. She states she has been taking Motrin an Tylenol for the pain. Medication Reconciliation Allergies: Coded Allergies: celecoxib (Unverified Allergy, Intermediate, 01/15/25) cephalexin (Unverified Allergy, Intermediate, 01/15/25) codeine (Unverified Allergy, Intermediate, 01/15/25) diphenhydramine (Unverified Allergy, Intermediate, 01/15/25) duloxetine (Unverified Allergy, Intermediate, 01/15/25) hydrocodone (Unverified Allergy, Intermediate, 01/15/25) iron (Unverified Allergy, Intermediate, 01/15/25) paroxetine (Unverified Allergy, Intermediate, 01/15/25) propoxyphene (Unverified Allergy, Intermediate, 01/15/25) pseudoephedrine (Unverified Allergy, Intermediate, 01/15/25) Scheduled Albuterol Sulfate (Proventil Hfa), 2 PUFFS INH Q6H Bupropion XL (Bupropion Xl), 1 TAB PO DAILY, (Reported) Chlorthalidone (Chlorthalidone), 0.5 TAB PO DAILY, (Reported) Cholecalciferol (Vitamin D3) (Vitamin D3), 8 CAP PO DAILY, (Reported) Furosemide (Lasix), 1 TAB PO DAILY, (Reported) Lisinopril (Lisinopril), 3 TAB PO DAILY, (Reported) ONDANSETRON ODT 4mg tablet (Ondansetron Odt), 1 TABLET PO Q6H Ondansetron 8mg ODT (Ondansetron Odt), 1 TAB PO Q6H Pantoprazole Sodium (PROTONIX tablet), 1 TAB PO DAILY, (Reported) Primidone (Mysoline), 2 TAB PO HS, (Reported) Propranolol Hcl (Propranolol Hcl), 1 TAB PO Q12H, (Reported) Scheduled PRN Oxycodone HCl/Acetaminophen (Percocet 10-325 mg Tablet), 1 TAB PO QID PRN PRN for Arm pain post op Past Medical History Past Medical History: Seizures, Hypertension, Asthma, GERD Past Surgical History: hysterectomy Patient History: FH: [place] (myocardial infarction) FATHER, Onset:Unknown FH: kidney failure FATHER, Onset:Unknown FH: seizures MOTHER, Onset:Unknown FH: tremor FATHER, Onset:Unknown sisters, Onset:Unknown sisters, Onset:Unknown Alcohol Use: None Lives with: Family Lives In: Home Review of Systems All Other Systems at this time: Reviewed and Negative ROS As stated above in the HPI, otherwise all systems are reviewed and negative. Physical Exam Vital Signs: RN Vital Signs have been reviewed: Yes, Temperature: 97.7, Source: Temporal, Heart Rate: 80, Respiratory Rate: 16, BP: 166/87, Pulse Oximetry: 95, Weight: 101.500 Oxygen Flow Rate: 0 Pulse Oximetry Reflects: adequate oxygenation Physical Exam General: The patient is well developed, well nourished, nontoxic appearing and is in no acute distress. Skin: [place], warm and dry with no rashes. HEENT: Soft tissue swelling to left of forehead. Head was normocephalic. Eyes - pupils equal, round, reactive to light and accommodation. Extraocular movements were intact. Conjunctivae were nonicteric. Ears - bilateral tympanic membranes were normal. The mouth and oropharynx were clear with moist mucous membranes. There were no pharyngeal exudates or erythema. Neck: Supple and nontender. There was no jugular venous distention, lymphadenopathy, thyromegaly or masses. Chest: Clear to auscultation bilaterally without wheezes, rales or rhonchi. No accessory muscle use. No dullness to percussion. Heart: Rate regular and rhythmic. S1, S2. No murmurs. Palpation of the chest wall was normal. No rubs or thrills. Abdomen: Soft, nontender and nondistended. Positive bowel sounds. No guarding or rebound. No hepatosplenomegaly or palpable masses. Extremities: No cyanosis, clubbing or edema. The patient moves all extremities. Pulses were equal and symmetric. Neurologic: Resting tremor. Cranial nerves II-XII were intact. Sensation was intact to light touch throughout. Motor strength was 5/5 in all four extremities. Deep tendon reflexes were intact in both upper and lower extremities. Psychologic: The patient was oriented to person, place and time. The patient demonstrated appropriate judgement and insight. Progress Results/Orders Reviewed/noted all lab results: Yes Results/Orders Orders - DECLAN HARMON MD Ct Head (01/16/25 00:34) Completed Orders - DECLAN HARMON MD Ct Head (01/16/25 00:34) Ondansetron Disint. Tablet (Zofran Odt T (01/16/25 01:10) Magnesium Oxide Tablet (Mag-Ox 400mg Tab (01/16/25 01:10) Medications Received in ER Medications (Trade) Dose Ordered Sig/Amada Route PRN Reason Start Time Stop Time Status Last Admin Dose Admin (Zofran ODT tablet) 4 mg ONCE ONCE PO 01/16/25 01:10 01/16/25 01:11 DC 01/16/25 01:24 4 MG (mag-Ox 400mg tablet) 400 mg ONCE ONCE PO 01/16/25 01:10 01/16/25 01:11 DC 01/16/25 01:24 400 MG Vital Signs 01/15/25 01/16/25 01/16/25 23:31 00:28 01:32 Temp 97.7 Pulse 80 77 Resp 18 16 18 B/P (MAP) 166/87 156/87 Pulse Ox 95 96 O2 Flow Rate 0 Re-Evaluation Re-Evaluation : Re-Evaluation: Improved Progress Patient was seen and examined. Patient is given reassurance. Patient bumped her head on shower head and came in because she was having concussion like syndrome with nausea and headaches. Patient is concerned. Patient is not on a ny blood thinners. Cat scan was obtained and was within normal limits. Patient received Zofran for her nausea as well as some Mag oxide because she was having some tremors. She is otherwise in good health has no other complaints at this time. CT scan was negative for any cranial bleed and she was discharged home with reassurance. EKG/XRAY/CT/US/VASC/MRI CT : Impression EXAM: CT CT HEAD INDICATION: trauma TECHNIQUE: CT of the head without intravenous contrast. Radiation Dose : 1. Head: CT Dose: CTDI volume is 54.02 mGy. Dose-length product is 911.35 mGy*cm The dose indicators for CT are the volume Computed Tomography (CT) Dose Index (CTDIvol) and the Dose Length Product (DLP), and are measured in units of mGy and mGy-cm, respectively. These indicators are not patient dose, but values generated from the CT scanner acquisition factors. The report includes radiation exposure data for exposures received during this examination. COMPARISON: MRI HEAD on DOS: 11/19/20, CT HEAD on DOS: 11/19/20 FINDINGS: There is no evidence of acute intracranial hemorrhage, extra-axial collection, mass effect, midline shift, herniation or hydrocephalus. The ventricles, sulci and cisterns are age appropriate. The stevenson-white differentiation is intact. Patchy periventricular and subcortical white matter hypoattenuation is nonspecific but may be related to small vessel ischemic disease. The visualized paranasal sinuses and mastoid air cells are clear. The surrounding soft tissues and osseous structures are unremarkable. IMPRESSION: 1. No acute intracranial abnormality. Radiation optimization: All CT scans at this facility use at least one of these dose optimization techniques: automated exposure control mA and/or kV ad justment per patient size (includes targeted exams where dose is matched to clinical indication) or iterative reconstruction. Electronically Signed by:ALBERTO BOLAÑOS MD Date & Time: 01/16/25 0114 Medical Decision Making Additional info obtained from: old records Differential Dx:Considerations: Include: SAMS-Cluster, SAMS-Migraine, SAMS- Hypertensive, SAMS-Muscular contraction, Close head injuyr, Hemorrhage-Epidural, Hemorrhage-Intracerebral, Hemorrhage-Subarachnoid, Hemorrhage-Subdural, Post- traumtic, Sinusitis, Temporal arteritis, Trigeminal neuralgia, Other Departure Time of Disposition: 01:14 Disposition: 01 HOME / SELF CARE / HOMELESS Impression: Primary Impression: Contusion Qualified Codes: S00.03XA - Contusion of scalp, initial encounter Additional Impression: Concussion Qualified Codes: S06.0X0A - Concussion without loss of consciousness, initial encounter Condition: Stable Discharge Instructions: Concussion, Adult, [id number] Referrals: NO PRIMARY CARE PROVIDER (PCP) Education Educated: Patient, Family Educated regarding: diagnosis, treatment, prognosis, need for follow up Signature Scribe Signature: Scribed for Declan Harmon MD by Bailey Miramontes . 01/16/25 01:15 Attestation: The note accurately reflects work and decisions made by me.Declan Harmon MD 01/16/25 01:03 DECLAN HARMON MD Jan 16, 2025 01:03 BAILEY MACKEY Jan 16, 2025 01:15
--- NOTE | 2025-01-16 01:16 | RADIOLOGY REPORT ---
EXAM: CT CT HEAD INDICATION: trauma TECHNIQUE: CT of the head without intravenous contrast. Radiation Dose : 1. Head: CT Dose: CTDI volume is 54.02 mGy. Dose-length product is 911.35 mGy*cm The dose indicators for CT are the volume Computed Tomography (CT) Dose Index (CTDIvol) and the Dose Length Product (DLP), and are measured in units of mGy and mGy-cm, respectively. These indicators are not patient dose, but values generated from the CT scanner acquisition factors. The report includes radiation exposure data for exposures received during this examination. COMPARISON: MRI HEAD on DOS: 11/19/20, CT HEAD on DOS: 11/19/20 FINDINGS: There is no evidence of acute intracranial hemorrhage, extra-axial collection, mass effect, midline s hift, herniation or hydrocephalus. The ventricles, sulci and cisterns are age appropriate. The stevenson-white differentiation is intact. Patchy periventricular and subcortical white matter hypoattenuation is nonspecific but may be related to small vessel ischemic disease. The visualized paranasal sinuses and mastoid air cells are clear. The surrounding soft tissues and osseous structures are unremarkable. IMPRESSION: 1. No acute intracranial abnormality. Radiation optimization: All CT scans at this facility use at least one of these dose optimization jon hniques: automated exposure control mA and/or kV adjustment per patient size (includes targeted exam s where dose is matched to clinical indication) or iterative reconstruction.
[2025-01-16] MEDS: ondansetron 4mg rapidly disintigrating tab PO ONE (01:24)
[2025-01-16 01:32] VITALS: BP 156/87; PULSE 77; RESP 18; O2SAT 96
== END 2025-01-16 01:34 | disposition home or self-care (01) ==
LOC: ER 23:16
DX: S06.0X0A Concussion without loss of consciousness, initial encounter (principal); S00.03XA Contusion of scalp, initial encounter; I10 Essential (primary) hypertension; J45.909 Unspecified asthma, uncomplicated; K21.9 Gastro-esophageal reflux disease without esophagitis; Z88.5 Allergy status to narcotic agent; Z88.1 Allergy status to other antibiotic agents; Z88.8 Allergy status to other drugs, medicaments and biological substances; Z90.710 Acquired absence of both cervix and uterus; Z79.899 Other long term (current) drug therapy; X58.XXXA Exposure to other specified factors, initial encounter; Y93.89 Activity, other specified; Y92.89 Other specified places as the place of occurrence of the external cause; Y99.8 Other external cause status
CPT/HCPCS: 70450; 99284